=== PATIENT | female | born 1990 | race Asian ===

== ENCOUNTER 2016-12-03 23:13 | Observation (INO) | payer BC ==
--- NOTE | 2016-12-03 23:58 | ERPHSYRPT ---
- History of Present Illness Time Seen by Provider: 12/03/16 23:17 Historian: patient Exam Limitations: no limitations Physician History: patient presents with constipation; no bm for two days; blood on toilet paper only; no hx of hemrrhoids; some abd cramping; some nausea; vomited once last pm ; voiding ok; denies ; no fefver; no travel; no prior hx Timing/Duration: today (worse), yesterday (onnset), day(s) (2 constipated), gradual onset, worse Activities at Onset: none Quality: cramping Abdominal Pain Onset Location: generalized abdomen Pain Radiation: no radiation Severity of Pain-Max: moderate Severity of Pain-Current: moderate Modifying Factors: Improves With: defecating Associated Symptoms: diarrhea (watery stool today), nausea, vomiting (x1 last pm ) Previous symptoms: no prior history Allergies/Adverse Reactions: No Known Drug Allergies Allergy (Unverified 12/04/16 00:32) Home Medications: Topiramate [Topiramate ER] 1 tab BID 12/04/16 [History] Venlafaxine HCl [Effexor] 225 mg PO 12/04/16 [History] - Review of Systems Constitutional: No Symptoms Eyes: No Symptoms Ears, Nose, & Throat: No Symptoms Respiratory: No Cough, No Dyspnea, No Wheezing Cardiac: No Chest Pain, No Palpitations, No Syncope Abdominal/Gastrointestinal: Abdominal Pain (crampy), Nausea, Vomiting (x1 last pm), Diarrhea (x 1 today watery stool), Constipation (x 2 days), No Hematemesis , No Hematochezia, No Melena Genitourinary Symptoms: No Symptoms Musculoskeletal: No Symptoms Skin: No Symptoms Neurological: No Symptoms Psychological: Depression, No Suicidal Ideations, No Homicidal Ideations Endocrine: No Symptoms Hematologic/Lymphatic: No Symptoms Immunological/Allergic: No Symptoms - Past Medical History Pertinent Past Medical History: Yes Neurological History: Migraines Psycho-Social History: Depression - Past Surgical History Past Surgical History: No - Social History Smoking Status: Never smoker Exposure to second hand smoke: No Alcohol Use: None Drug Use: none Patient Lives Alone: No Significant Family History: no pertinent family hx - Female History Hx Now: No (on BC) - Nursing Vital Signs Nursing Vital Signs: Initial Vital Signs Temperature 97.8 F 12/03/16 23:14 Pulse Rate 116 H 12/03/16 23:14 Respiratory Rate 20 12/03/16 23:14 Blood Pressure 122/88 12/03/16 23:14 O2 Sat by Pulse Oximetry 95 12/03/16 23:14 Pain Scale Pain Intensity 7 - Physical Exam General Appearance: moderate distress, alert, anxiety, obese (morbid) Eye Exam: PERRL/EOMI, eyes nml inspection, No photophobia Ears, Nose, Throat Exam: normal ENT inspection, TMs normal, pharynx normal, moist mucous membranes Neck Exam: normal inspection, non-tender, supple, full range of motion, No meningismus, No JVD Respiratory Exam: normal breath sounds, lungs clear, airway intact, No chest tenderness, No respiratory distress, No rhonchi, No wheezing Cardiovascular Exam: regular rate/rhythm, normal heart sounds, normal peripheral pulses, tachycardia (116), capillary refill <2 sec, No murmur Gastrointestinal/Abdomen Exam: soft, tenderness (mild diffuse), No normal bowel sounds (slightly hyperactive), No guarding, No rebound, No organomegaly Pelvic Exam: deferred Rectal Exam: normal exam, normal rectal tone, blood (small amount bloody mucous) , No hemorrhoids, No black stool Back Exam: normal inspection, normal range of motion, No CVA tenderness, No vertebral tenderness, No rash Extremity Exam: normal inspection, normal range of motion, No clifton's sign, No pedal edema Neurologic Exam: alert, oriented x 3, cooperative, k 12 principal II-XII nml as tested, normal mood/affect, nml cerebellar function, nml station & gait Skin Exam: normal color, warm, dry, No rash, No petechiae - Course Nursing assessment & vital signs reviewed: Yes - CT Exams Abdomen/Pelvis CT Interpretation: Tele-radiologist Report, appendicitis Ordered Tests: Active Orders 24 hr Category Date Time Status Bedrest ROUTINE Activity 12/04/16 02:03 Active Admission/Status Order ROUTINE Care 12/04/16 01:58 Active Call Admit Doctor for Orders ON ADMISSION Care 12/04/16 02:01 Active Code Status Order ROUTINE Care 12/04/16 01:58 Active IV Care Q6H Care 12/04/16 01:58 Active IV Insertion STAT Care 12/04/16 00:04 Active NPO (ED) STAT Care 12/04/16 00:04 Active Re-Check Vital Signs STAT Care 12/04/16 00:04 Active Ander Leos, Apply ROUTINE Care 12/04/16 01:58 Active Weight,Daily 0600 Care 12/04/16 01:58 Active Consult Surgery ROUTINE Cons 12/04/16 01:58 Active NPO Diet 12/04/16 02:01 Active ABDOMEN AND PELVIS W CONTRAST [CT] Stat Exams 12/04/16 00:09 Taken AMYLASE Stat Lab 12/04/16 00:20 Completed CBC W DIFF Stat Lab 12/04/16 00:20 Completed CMP Stat Lab 12/04/16 00:20 Completed HCG QUALITATIVE,SERUM Stat Lab 12/04/16 00:20 Completed LIPASE Stat Lab 12/04/16 00:20 Completed Lactic Acid Stat Lab 12/04/16 01:40 Completed Manual Differential NC Stat Lab 12/04/16 00:20 Completed Occult Blood,Stool Other Stat Lab 12/04/16 00:26 Ordered UA W/ MICROSCOPIC Stat Lab 12/04/16 01:15 Completed Transfer Order Routine Transfer 12/04/16 Ordered Medication Summary Generic Name Dose Route Start Last Admin Trade Name Freq PRN Reason Stop Dose Admin Hydromorphone HCl 1 mg 12/04/16 01:58 Dilaudid 2 Mg Injection IV 12/09/16 01:57 Q4H PRN PRN PAIN Sodium Chloride 1,000 mls @ 100 mls/hr 12/04/16 00:15 12/04/16 00:37 Sodium Chloride 0.9% 1000 Ml IV 01/03/17 00:14 100 mls/hr .Q10H DEV Administration Cefazolin Sodium/Dextrose 1 gm in 50 mls @ 100 mls/hr 12/04/16 06:00 Kefzol 1 Gm/50 Ml Premix IV 01/03/17 05:59 Q8HT DEV Ondansetron HCl 4 mg 12/04/16 01:58 Zofran 4 Mg/2 Ml Vial IV 01/03/17 01:57 Q6H PRN PRN NAUSEA/VOMITING Discontinued Medications Generic Name Dose Route Start Last Admin Trade Name Freq PRN Reason Stop Dose Admin Hydromorphone HCl 2 mg 12/04/16 00:52 12/04/16 00:56 Hydromorphone 1 Mg/Ml Ampule IV 12/04/16 00:53 2 mg STAT ONE Administration Hydromorphone HCl Confirm 12/04/16 00:55 Hydromorphone 1 Mg/Ml Ampule Administered 12/04/16 00:56 Dose 2 mg .ROUTE .STK-MED ONE Promethazine HCl 12.5 mg 12/04/16 00:04 12/04/16 00:37 Phenergan 25 Mg Inj IV 12/04/16 00:05 12.5 mg STAT ONE Administration Promethazine HCl Confirm 12/04/16 00:28 Phenergan 25 Mg Inj Administered 12/04/16 00:29 Dose 25 mg .ROUTE .STK-MED ONE Lab/Rad Data: Laboratory Result Diagrams 12/04/16 00:20 12/04/16 00:20 Laboratory Results 12/04/16 12/04/16 12/04/16 Range/Units 01:40 01:15 00:20 WBC (4.0-10.5) K/mm3 RBC (4.1-5.4) M/mm3 Hgb (12.0-16.0) gm/dl Hct (35-47) % MCV (78-100) fl MCH (26-32) pg MCHC (32-36) g/dl RDW (11.5-14.0) % Plt Count (150-450) K/mm3 MPV (6-9.5) fl Sodium (136-145) mEq/L Potassium (3.5-5.1) mEq/L Chloride (98-107) mEq/L Carbon Dioxide (21-32) mEq/L Anion Gap (5-15) MEQ/L BUN (9-20) mg/dL Creatinine (0.55-1.30) mg/dl Estimated GFR ML/MIN Glucose (70-110) MG/DL Lactic Acid 1.1 (0.4-2.0) Calcium (8.5-10.1) mg/dL Total Bilirubin (0.2-1.0) mg/dL AST (15-37) U/L ALT (12-78) U/L Alkaline Phosphatase (46-116) U/L Serum Total Protein (6.4-8.2) gm/dL Albumin (3.4-5.0) g/dL Amylase (25-115) U/L Lipase (73-393) U/L Serum , Qual NEGATIVE (Negative) Ur Collection Type CATH Urine Color YELLOW (YELLOW) Urine Appearance CLEAR (CLEAR) Urine pH 5.0 (5-6) Ur Specific [place] 1.015 (1.005-1.025) Urine Protein 100 (Negative) Urine Ketones MODERATE (NEGATIVE) Urine Blood 50 (0-5) Gerson/ul Urine Nitrite NEGATIVE (NEGATIVE) Urine Bilirubin NEGATIVE (NEGATIVE) Urine Urobilinogen 1 (0-1) mg/dL Ur Leukocyte Esterase NEGATIVE (NEGATIVE) Urine Microscopic RBC 0-2 (0-2) /HPF Ur Epithelial Cells FEW (FEW) /HPF Urine Bacteria RARE (NEGATIVE) /HPF Urine Mucus SLIGHT (NEGATIVE) /HPF Urine Glucose NEGATIVE (NEGATIVE) mg/dL Specimen Received 12/04/16:0115 12/04/16 12/04/16 Range/Units 00:20 00:20 WBC 30.5 H* (4.0-10.5) K/mm3 RBC 4.80 (4.1-5.4) M/mm3 Hgb 15.7 (12.0-16.0) gm/dl Hct 45.2 (35-47) % MCV 94.2 (78-100) fl MCH 32.7 H (26-32) pg MCHC 34.7 (32-36) g/dl RDW 12.6 (11.5-14.0) % Plt Count 325 (150-450) K/mm3 MPV 10.9 H (6-9.5) fl Sodium 142 (136-145) mEq/L Potassium 3.2 L (3.5-5.1) mEq/L Chloride 105 (98-107) mEq/L Carbon Dioxide 17.3 L (21-32) mEq/L Anion Gap 22.6 H (5-15) MEQ/L BUN 7 L (9-20) mg/dL Creatinine 0.93 (0.55-1.30) mg/dl Estimated GFR > 60 ML/MIN Glucose 187 H (70-110) MG/DL Lactic Acid (0.4-2.0) Calcium 9.2 (8.5-10.1) mg/dL Total Bilirubin 0.90 (0.2-1.0) mg/dL AST 8 L (15-37) U/L ALT 13 (12-78) U/L Alkaline Phosphatase 96 (46-116) U/L Serum Total Protein 8.3 H (6.4-8.2) gm/dL Albumin 4.0 (3.4-5.0) g/dL Amylase 26 (25-115) U/L Lipase 72 L (73-393) U/L Serum , Qual (Negative) Ur Collection Type Urine Color (YELLOW) Urine Appearance (CLEAR) Urine pH (5-6) Ur Specific [place] (1.005-1.025) Urine Protein (Negative) Urine Ketones (NEGATIVE) Urine Blood (0-5) Gerson/ul Urine Nitrite (NEGATIVE) Urine Bilirubin (NEGATIVE) Urine Urobilinogen (0-1) mg/dL Ur Leukocyte Esterase (NEGATIVE) Urine Microscopic RBC (0-2) /HPF Ur Epithelial Cells (FEW) /HPF Urine Bacteria (NEGATIVE) /HPF Urine Mucus (NEGATIVE) /HPF Urine Glucose (NEGATIVE) mg/dL Specimen Received reviewed - Progress Progress: improved (after pain meds), re-examined (after meds and labs) Progress Note: 12/04/16 00:08 will give IV fluids and meds; get xr and recheck 12/04/16 00:50 recheck and family at bedside; N&V better but no relief of pain; significantly elevated WBC 30.5; preg neg; xr notified; will check urine and lactate and medicate for pain 12/04/16 01:11 medicated and sent to CT; BS up 187; renal function ok; K+ low at 3.2; dinora and lip wnl or low; liver labs ok or low; anion gap hi at 22.6; will recheck after cT and monitor 12/04/16 01:38 pain improved from 1010 to 7/[address]; results pending; VS improved too. Patient has a history of significantly elevated WBC in the 20 -30 range; ua and lactate pending; family at bedside 12/04/16 01:54CT shows acute appendicitis. Patient and family notified and Dr Constantino consulted and will admit and a surgical consult will be obtained. 12/04/16 01:57 lactate 1.1; Dr Paez paged for surgical consult for acute appendicitis 12/04/16 02:05 room requested for admission; orders written; 12/04/16 02:15 Dr Alexey Paez consulted and will consult for surgical intervention; will give ATBS and pain meds Discussed with DrVinicius: En (consulted and will see for surgery), Vira ( consulted and will admit and get a surgical consult) Will see patient in: hospital (observation) Counseled pt/family regarding: lab results, diagnosis, need for follow-up, rad results - Departure Time of Disposition: 01:55 Departure Disposition: Observation Clinical Impression: Acute generalized abdominal pain, Acute appendicitis Condition: Serious Critical Care Time: No Referrals: DEJAN BUSTILLO [Primary Care Provider] - EASTON CONSTANTINO [ACTIVE STAFF] - ISIS PAEZ [ACTIVE STAFF] -
[2016-12-04] MEDS ORDERED: Phenergan 25 MG INJ IV ONE (00:04)
[2016-12-04] MEDS ORDERED: Sodium Chloride 0.9% 1000 ML 1,000 ML IV SCH (00:15)
[2016-12-04] MEDS ORDERED: Phenergan 25 MG INJ ONE (00:28)
[2016-12-04] MEDS ORDERED: Sodium Chloride 0.9% 1000 ML 1,000 ML ONE (00:29)
[2016-12-04 00:35] LABS: Mean Cell Volume 94.2 fl (78-100); Mean Corpuscular Hemoglobin 32.7 pg (26-32); Mean Platelet Volume 10.9 fl (6-9.5); Platelet Count 325 K/mm3 (150-450); Red Cell Distribution Width 12.6 % (11.5-14.0)
[2016-12-04 00:38] LABS: White Blood Count 30.5 K/mm3 (4.0-10.5)
[2016-12-04 00:52] LABS: ALKALINE PHOSPHATASE 96 U/L (46-116); ANION GAP 22.6 MEQ/L (5-15); BLOOD UREA NITROGEN 7 mg/dL (9-20); CHLORIDE 105 mEq/L (98-107); Carbon Dioxide 17.3 mEq/L (21-32); Glucose 187 MG/DL (70-110); LIPASE 72 U/L (73-393); Potassium 3.2 mEq/L (3.5-5.1); SGOT/AST 8 U/L (15-37); SGPT/ALT 13 U/L (12-78); SODIUM 142 mEq/L (136-145); Total Protein 8.3 gm/dL (6.4-8.2)
[2016-12-04] MEDS ORDERED: Hydromorphone 1 mg/ml Ampule IV ONE (00:52)
[2016-12-04] MEDS ORDERED: Hydromorphone 1 mg/ml Ampule ONE (00:55)
[2016-12-04 01:27] LABS: Collection Type CATH
[2016-12-04 01:29] LABS: Bilirubin NEGATIVE (NEGATIVE); Blood 50 Ery/ul (0-5); COMPLETE URINE MICROSCOPIC? YES; Glucose NEGATIVE (NEGATIVE); Leukocyte Esterase NEGATIVE (NEGATIVE)
[2016-12-04 01:41] LABS: Bacteria RARE /HPF (NEGATIVE); Epithelial Cells FEW /HPF (FEW); Mucus SLIGHT /HPF (NEGATIVE)
[2016-12-04 01:42] LABS: ADD URINE CULTURE? NO (NO)
[2016-12-04] MEDS ORDERED: Zofran 4 MG/2 ML VIAL IV PRN (01:58)
[2016-12-04] MEDS ORDERED: KEFZOL 1 GM/50 ML PREMIX** 1 GM/50 ML IVPB IV ONE (02:41)
[2016-12-04] MEDS: KEFZOL 1 GM/50 ML PREMIX** 1 GM/50 ML IVPB IV SCH ×2 (02:41→07:25)
[2016-12-04 03:28] LABS: ATYPICAL LYMPHS 3 %; BAND 1 % (0.0-2.0); Platelet Estimate NORMAL (NORMAL); Total Cells Counted 100
[2016-12-04] MEDS: DILAUDID 2 MG INJECTION IV PRN ×2 (05:17→09:22)
--- NOTE | 2016-12-04 08:07 | XRAY ---
Indication: Abdominal pain and elevated WBC. Constipation. Multiple contiguous axial images obtained through the abdomen and pelvis using 80 cc Isovue 370 contrast only. Comparison: None Lung bases essentially clear. Heart is not enlarged. Noncontrasted stomach and bowel loops appear nonobstructed. Appendix is prominent up to 12 mm favoring appendicitis. Adjacent ileal bowel loops are mildly fluid distended with minimal wall thickening/enhancement either reactive versus enteritis. No free fluid/air. Remaining liver, pancreas, spleen, adrenal glands, kidneys, ureters, bladder, uterus, and aorta appear unremarkable. Osseous structures intact. Impression: 1. CT findings favoring acute appendicitis. No perforation or abscess. 2. Mild fluid distended ileal bowel loops with wall thickening/enhancement either reactive to appendicitis versus enteritis. Comment: Preliminary interpretation was made by [facility]. No discrepancy. CTDI 23.68
[2016-12-04] MEDS ORDERED: Lactated Ringers 1,000 ML IV SCH (10:00)
[2016-12-04] MEDS ORDERED: MEFOXIN 2 GM PREMIX** 2 GM/50 ML ML IV SCH (10:00)
[2016-12-04] MEDS ORDERED: Cyclobenzaprine 10 MG PO PRN (10:19)
[2016-12-04] MEDS ORDERED: Lactated Ringers 1,000 ML IV ONE ×2 (10:26→12:32)
[2016-12-04] MEDS ORDERED: Sensorcaine 0.25% 10 ML ONE (10:26)
[2016-12-04] MEDS ORDERED: DILAUDID 2 MG INJECTION ONE (11:58)
[2016-12-04] MEDS ORDERED: SUBLIMAZE 100 MCG/2 ML ONE (11:59)
[2016-12-04] MEDS ORDERED: BRIDION 200MG/2ML IV ONE (12:29)
[2016-12-04] MEDS ORDERED: Zofran 4 MG/2 ML VIAL IV ONE (12:29)
[2016-12-04] MEDS ORDERED: Versed 2 MG/2 ML Injection IV ONE (12:29)
[2016-12-04] MEDS ORDERED: Quelicin Fliptop 200 MG/10 ML IV ONE (12:29)
[2016-12-04] MEDS ORDERED: Zemuron 100 MG/10 ML IV ONE (12:29)
[2016-12-04] MEDS ORDERED: SUBLIMAZE 250 MCG/5 ML IV ONE (12:29)
[2016-12-04] MEDS ORDERED: DIPRIVAN 200 MG/20 ML IV ONE (12:29)
[2016-12-04] MEDS ORDERED: Zofran 4 MG/2 ML VIAL IVIM PRN (13:13)
[2016-12-04] MEDS ORDERED: TYLENOL 325 MG PO PRN (13:15)
[2016-12-04] MEDS ORDERED: FEVERALL 650 MG RC PRN (13:16)
[2016-12-04] MEDS: D5W/0.45NS W/ 20mEq KCl 1000 ML 1,000 ML IV SCH (13:34)
[2016-12-04] MEDS: MORPHINE SULFATE 2 MG INJ IV PRN (13:34)
[2016-12-04] MEDS: Topamax 100 MG PO SCH ×2 (13:34→21:46)
[2016-12-04 14:50] LABS: Bilirubin NEGATIVE (NEGATIVE); Blood SMALL Ery/ul (0-5); COMPLETE URINE MICROSCOPIC? YES; Collection Type CATH; Glucose NEGATIVE (NEGATIVE); Leukocyte Esterase TRACE (NEGATIVE)
[2016-12-04 14:51] LABS: Bacteria FEW /HPF (NEGATIVE); Epithelial Cells MODERATE /HPF (FEW); Mucus MANY /HPF (NEGATIVE)
--- NOTE | 2016-12-04 15:21 | PCM.HP ---
History of Present Illness - Chief Complaint Chief Complaint: appy History of Present Illness: is a 26 year old female pt of Dr. Murray who c/o 2 d of abdominal pain, was admitted through the ER and found to have appendicitis. Currently she is immediately s/p appendectomy by Dr. Evan Paez. She was having pain from epigstrum to pelvis and extending into her rectum, 10/ 10. She started having rectal bleeding with bowel movements so went to the ER. Her WBC count was 30,000. She did have some fever and vomiting. Currently having some 9/10 postoperative pain. - Review of Systems Constitutional: Other (wieght gain 10 lb recently) Cardiac: Chest Pain (chronic since high school) Abdominal/Gastrointestinal: Abdominal Pain, Nausea, Vomiting, Hematochezia Genitourinary Symptoms: Urinary Retention (mild x 2d) Musculoskeletal: Other (cramp in legs) Neurological: Dizziness, Headache (migraines since childhood; last yesterday), Other (c/o "fainting" spells but denies LOC; present since childhood) Psychological: Anxiety, Depression, Other (history suicidal ideation/attempt, last 4 mo ago, none currently), No Suicidal Ideations Medications & Allergies Home Medications: Home Medication List Cyclobenzaprine HCl 10 mg [Cyclobenzaprine 10 MG] 5 mg PO DAILY PRN [History Confirmed 12/04/16] Medroxyprogesterone Acet [Depo-Provera] 150 mg IJ UD 12/04/16 [History Confirmed 12/04/16] Topiramate [Topiramate ER] 1 tab BID 12/04/16 [History Confirmed 12/04/16] Venlafaxine HCl [Effexor] 225 mg PO DAILY 12/04/16 [History Confirmed 12/04/16] Allergies/Adverse Reactions: Allergies Allergy/AdvReac Type Severity Reaction Status Date / Time No Known Drug Allergies Allergy Unverified 12/04/16 00:32 - Past Medical History Past Medical History: Yes Neurological History: Migraines ENT History: No Pertinent History Cardiac History: Arrhythmia Respiratory History: No Pertinent History Endocrine Medical History: No Pertinent History Musculoskelatal History: No Pertinent History GI Medical History: No Pertinent History History: No Pertinent History Pyscho-Social History: Depression Reproductive Disorders: No Pertinent History Comment: diagnoesed last february with borderline personality disorder - Female History Are you now?: No (says no on injectable BC) - Past Surgical History Past Surgical History: No - Social History Smoking Status: Never smoker Exposure to second hand smoke: Yes Alcohol: None Drug Use: none Significant Family History: no pertinent family hx - Physical Exam Vital Signs: Vital Signs - 24 hr Temp Pulse Resp BP Pulse Ox 12/04/16 14:09 97.9 F 115 H 20 110/65 97 12/04/16 13:29 97.6 F 122 H 22 126/71 96 12/04/16 13:16 96 12/04/16 13:03 98 F 120 H 20 130/77 95 12/04/16 12:47 98.1 F 121 H 20 121/60 97 12/04/16 12:00 20 12/04/16 07:38 20 12/04/16 07:34 98.4 F 123 H 20 111/55 93 L 12/04/16 07:19 98 F 128 H 20 123/67 97 12/04/16 02:58 98.3 F 123 H 16 124/73 96 12/04/16 01:35 99.6 F 122 H 16 122/76 99 12/04/16 01:05 94 H 18 133/68 98 12/03/16 23:14 97.8 F 116 H 20 122/88 95 General Appearance: no apparent distress, obese Neurologic Exam: alert, oriented x 3, cooperative Eye Exam: eyes nml inspection Neck Exam: normal inspection, non-tender, supple, No lymphadenopathy Respiratory Exam: normal breath sounds, lungs clear, No crackles/rales, No rhonchi, No wheezing Cardiovascular Exam: regular rate/rhythm, normal heart sounds, No murmur Gastrointestinal/Abdomen Exam: soft, normal bowel sounds, tenderness (throughout ), other (surgical wounds covered with bandages - c/d/i) Extremity Exam: normal inspection Skin Exam: normal color, warm, dry Results - Labs Lab/Micro Results: Lab Results-Last 24 Hours 12/04/16 Range/Units 10:50 Ur Collection Type CATH Urine Color DARK YELLOW (YELLOW) Urine Appearance CLEAR (CLEAR) Urine pH 5.0 (5-6) Ur Specific [place] 1.015 (1.005-1.025) Urine Protein TRACE (Negative) Urine Ketones NEGATIVE (NEGATIVE) Urine Blood SMALL (0-5) Gerson/ul Urine Nitrite NEGATIVE (NEGATIVE) Urine Bilirubin NEGATIVE (NEGATIVE) Urine Urobilinogen NORMAL (0-1) mg/dL Ur Leukocyte Esterase TRACE (NEGATIVE) Urine Microscopic RBC 2-5 (0-2) /HPF Urine Microscopic WBC 2-5 (0-5) /HPF Ur Epithelial Cells MODERATE (FEW) /HPF Urine Bacteria FEW (NEGATIVE) /HPF Urine Mucus MANY (NEGATIVE) /HPF Urine Glucose NEGATIVE (NEGATIVE) mg/dL Specimen Received 12/04/16 11:10 - Other Procedures and Tests Respiratory Therapy 12/04/16 12:54 Incentive Spirometry Assessmen UD Assessment/Plan (1) S/P appendectomy Current Visit: Yes Status: Acute Assessment & Plan: Today by Dr. Paez, thank you. He advised pt to stay overnight on IV antibiotics. Code(s): Z90.49 - ACQUIRED ABSENCE OF OTHER SPECIFIED PARTS OF DIGESTIVE TRACT (2) Leukocytosis Current Visit: Yes Status: Acute Assessment & Plan: On cefoxetin 1g IV q8h. Recheck in a.m. Code(s): D72.829 - ELEVATED WHITE BLOOD CELL COUNT, UNSPECIFIED
[2016-12-04] MEDS: MORPHINE SULFATE 4 MG INJ IV PRN ×2 (16:24→21:46)
[2016-12-04] MEDS: MEFOXIN 1 Gm/ D5W 50 Ml** 1 G/50 ML ML IV SCH (17:53)
[2016-12-04] MEDS: NORCO 5/325 MG PO PRN (17:57)
[2016-12-04] MEDS ORDERED: TOPIRAMATE PO SCH (22:00)
[2016-12-05] MEDS: MEFOXIN 1 Gm/ D5W 50 Ml** 1 G/50 ML ML IV SCH ×3 (02:16→18:18)
[2016-12-05] MEDS: MORPHINE SULFATE 4 MG INJ IV PRN (04:31)
[2016-12-05 05:54] LABS: Mean Corpuscular Hemoglobin 32.9 pg (26-32); Mean Platelet Volume 11.2 fl (6-9.5); Platelet Count 252 K/mm3 (150-450); Red Blood Count 3.95 M/mm3 (4.1-5.4); Red Cell Distribution Width 12.6 % (11.5-14.0)
[2016-12-05 06:01] LABS: White Blood Count 25.1 K/mm3 (4.0-10.5)
[2016-12-05] MEDS: MORPHINE SULFATE 2 MG INJ IV PRN ×3 (09:19→21:44)
[2016-12-05] MEDS: Topamax 100 MG PO SCH ×2 (09:20→21:39)
[2016-12-05] MEDS: Effexor XR 75 MG PO SCH (09:20)
[2016-12-05] MEDS: ENOXAPARIN SODIUM SQ SCH (09:20)
[2016-12-05] MEDS ORDERED: VENLAFAXINE HCL 225 MG PO SCH (10:00)
[2016-12-05] MEDS: NORCO 5/325 MG PO PRN ×2 (12:17→18:28)
--- NOTE | 2016-12-05 13:02 | PCM.NOTE ---
Date and Time: 12/05/16 1257 Subjective Assessment: She is still c/o some abdominal pain. Has been tolerating po well. - Review of Systems Constitutional: No Fever Abdominal/Gastrointestinal: Abdominal Pain Objective Exam General Appearance: no apparent distress, obese Neurologic Exam: alert, oriented x 3, cooperative Skin Exam: normal color, warm, dry Respiratory Exam: normal breath sounds, No crackles/rales, No rhonchi, No wheezing Cardiovascular Exam: regular rate/rhythm, normal heart sounds, No murmur Gastrointestinal/Abdomen Exam: soft, normal bowel sounds, tenderness (in RUQ and RLQ), No guarding, No rebound Extremity Exam: No pedal edema, No swelling Back Exam: normal inspection OBJECTIVE DATA Vital Signs: Vital Signs - 24 hr Temp Pulse Resp BP Pulse Ox 12/05/16 12:27 98 F 78 20 128/66 98 12/05/16 12:00 20 12/05/16 08:00 20 12/05/16 07:02 98 F 70 20 101/58 98 12/05/16 04:00 98.3 F 106 H 17 114/62 95 12/05/16 00:00 16 12/04/16 23:34 98.2 F 93 H 16 109/67 96 12/04/16 20:14 104 H 20 97 12/04/16 20:00 98.5 F 109 H 20 112/75 97 12/04/16 16:20 97.8 F 106 H 20 125/61 95 12/04/16 16:00 20 12/04/16 14:09 97.9 F 115 H 20 110/65 97 12/04/16 13:29 97.6 F 122 H 22 126/71 96 12/04/16 13:16 96 12/04/16 13:03 98 F 120 H 20 130/77 95 Pain Assessment - Last Documented Pain Intensity 9 Pain Scale Used 0-10 Pain Scale Intake and Output: Intake & Output 12/03/16 12/04/16 12/05/16 12/06/16 11:59 11:59 11:59 11:59 Intake Total 149 2659 Output Total 3000 Balance 149 -341 Weight 126.099 kg 126.961 kg Lab Results: Lab Results-Last 24 Hours 12/04/16 12/05/16 Range/Units 10:50 05:20 WBC 25.1 H* (4.0-10.5) K/mm3 Corrected WBC (auto) [employer] RBC 3.95 L (4.1-5.4) M/mm3 Hgb 13.0 (12.0-16.0) gm/dl Hct 38.3 (35-47) % MCV 97.0 (78-100) fl MCH 32.9 H (26-32) pg MCHC 33.9 (32-36) g/dl RDW 12.6 (11.5-14.0) % Plt Count 252 (150-450) K/mm3 MPV 11.2 H (6-9.5) fl Ur Collection Type CATH Urine Color DARK YELLOW (YELLOW) Urine Appearance CLEAR (CLEAR) Urine pH 5.0 (5-6) Ur Specific [place] 1.015 (1.005-1.025) Urine Protein TRACE (Negative) Urine Ketones NEGATIVE (NEGATIVE) Urine Blood SMALL (0-5) Gerson/ul Urine Nitrite NEGATIVE (NEGATIVE) Urine Bilirubin NEGATIVE (NEGATIVE) Urine Urobilinogen NORMAL (0-1) mg/dL Ur Leukocyte Esterase TRACE (NEGATIVE) Urine Microscopic RBC 2-5 (0-2) /HPF Urine Microscopic WBC 2-5 (0-5) /HPF Ur Epithelial Cells MODERATE (FEW) /HPF Urine Bacteria FEW (NEGATIVE) /HPF Urine Mucus MANY (NEGATIVE) /HPF Urine Glucose NEGATIVE (NEGATIVE) mg/dL Slides for Path Review YES Specimen Received 12/04/16 11:10 Multi-Disciplinary Progress Notes: Multi-Disciplinary Progress Notes 12/05/16 06:32 Respiratory Note by Zeke Grimes COMPLETED ORDER FOR IS. AFTER INSTRUCTION AND A COUPLE OF FOLLOW UPS PT WAS DOING EXCELLENT W/ IS AND WE MADE HER SELF DIRECTED CARE. Initialized on 12/05/16 06:32 - END OF NOTE Assessment/Plan (1) S/P appendectomy Current Visit: Yes Status: Acute Assessment & Plan: POD #1, doing well aside from the leukocytosis. Should be up and out of bed more today. Code(s): Z90.49 - ACQUIRED ABSENCE OF OTHER SPECIFIED PARTS OF DIGESTIVE TRACT (2) Leukocytosis Current Visit: Yes Status: Acute Assessment & Plan: Elevated WBC, 25,100 down from 30,000 at admission. I would like for her to stay another day on the IV antibiotics. Recheck in the morning. She thinks she has some chronic leukocytosis but it sounds like her usual number is no higher than 14,000 (I cannot see any previous CBC in our EMR, however there is a peripheral smear from June 2016, mild leukocytosis with eosinophilia). Code(s): D72.829 - ELEVATED WHITE BLOOD CELL COUNT, UNSPECIFIED
[2016-12-06] MEDS: D5W/0.45NS W/ 20mEq KCl 1000 ML 1,000 ML IV SCH (01:05)
[2016-12-06] MEDS: NORCO 5/325 MG PO PRN ×2 (01:23→05:32)
[2016-12-06] MEDS: MEFOXIN 1 Gm/ D5W 50 Ml** 1 G/50 ML ML IV SCH ×2 (01:23→09:31)
[2016-12-06 06:01] LABS: Mean Cell Volume 97.4 fl (78-100); Mean Corpuscular Hemoglobin 32.6 pg (26-32); Mean Platelet Volume 11.5 fl (6-9.5); Platelet Count 259 K/mm3 (150-450); Red Blood Count 3.89 M/mm3 (4.1-5.4); Red Cell Distribution Width 12.2 % (11.5-14.0); White Blood Count 16.9 K/mm3 (4.0-10.5)
[2016-12-06 07:54] LABS: Eosinophil 2 % (0.00-3.0); Platelet Estimate NORMAL (NORMAL); Total Cells Counted 100; Toxic Granulation 1+
--- NOTE | 2016-12-06 09:13 | PCM.DS ---
Discharge Summary Date of Admission: 12/04/16 02:24 Admitting Physician: EASTON SHEIKH Consults: Consults on Case 12/04/16 01:58 Consult Surgery ROUTINE Primary Care Provider: DEJAN BUSTILLO Allergies Allergies No Known Drug Allergies Allergy (Unverified 12/04/16 00:32) Hospital Summary - Hospital Course Hospital Course: patient was admitted with acute appendicitis, had lap appy. had marked leukocytosis, improving with IV abx. she feels well, has been afebrile, ambulating and tolerating po with no problems. - Vitals & Intake/Output Vital Signs: Vital Signs Temperature 97.9 F 12/06/16 08:00 Pulse Rate 94 H 12/06/16 08:00 Respiratory Rate 22 12/06/16 08:00 Blood Pressure 111/67 12/06/16 08:00 O2 Sat by Pulse Oximetry 99 12/06/16 08:00 Intake & Output: Intake & Output 12/03/16 12/04/16 12/05/16 12/06/16 11:59 11:59 11:59 11:59 Intake Total 149 2659 1695 Output Total 3000 2800 Balance 149 -341 -1105 Weight 126.099 kg 126.961 kg - Lab Result Diagrams: 12/06/16 05:00 12/04/16 00:20 Lab Results-Last 24 Hrs: Lab Results-Last 24 Hours 12/06/16 Range/Units 05:00 WBC 16.9 H (4.0-10.5) K/mm3 RBC 3.89 L (4.1-5.4) M/mm3 Hgb 12.7 (12.0-16.0) gm/dl Hct 37.9 (35-47) % MCV 97.4 (78-100) fl MCH 32.6 H (26-32) pg MCHC 33.5 (32-36) g/dl RDW 12.2 (11.5-14.0) % Plt Count 259 (150-450) K/mm3 MPV 11.5 H (6-9.5) fl Segmented Neutrophils 73 H (36.0-66.0) % Lymphocytes (Manual) 18 L (24-44) % Monocytes (Manual) 7 (0.0-12.0) % Eosinophils (Manual) 2 (0.00-3.0) % Differential Comment NORMAL Toxic Granulation 1+ Platelet Estimate NORMAL (NORMAL) Micro Results-Entire Visit: Microbiology 12/04/16 10:50 Urine Culture - Final Catherized NO GROWTH 12/04/16 10:50 Gram Stain - Final Other - Not Known Wound Culture - Preliminary NO GROWTH TO DATE - Procedures and Test Procedures and Tests throughout Hospitalization: Therapy Orders & Screens 12/04/16 12:54 Incentive Spirometry Assessmen UD Comment: Diagnosis: appy Discharge Exam General Appearance: no apparent distress, alert Respiratory Exam: normal breath sounds, lungs clear, No respiratory distress Cardiovascular Exam: regular rate/rhythm, normal heart sounds Gastrointestinal/Abdomen Exam: soft, No tenderness, No mass Extremity Exam: normal inspection, normal range of motion Final Diagnosis/Problem List - Final Discharge Diagnosis/Problem (1) Acute appendicitis Current Visit: Yes Status: Acute (2) Leukocytosis Current Visit: Yes Status: Acute - Discharge Disposition: Home, Self-Care Condition: Good Prescriptions: No Action Venlafaxine HCl [Effexor] 225 mg PO DAILY Topiramate [Topiramate ER] 1 tab BID Cyclobenzaprine HCl 10 mg [Cyclobenzaprine 10 MG] 5 mg PO DAILY PRN PRN Reason: Muscle Spasms Medroxyprogesterone Acet [Depo-Provera] 150 mg IJ UD Follow up with: DEJAN BUSTILLO [Primary Care Provider] - ISIS ESPINAL [ACTIVE STAFF] - EASTON SHEIKH [ACTIVE STAFF] -
[2016-12-06] MEDS: ENOXAPARIN SODIUM SQ SCH (09:30)
[2016-12-06] MEDS: Effexor XR 75 MG PO SCH (09:30)
[2016-12-06] MEDS: Topamax 100 MG PO SCH (09:31)
[2016-12-06 12:08] VITALS: BP 96/64; PULSE 109; O2SAT 95
--- NOTE | 2016-12-07 07:37 | OP ---
SURGERY DATE/TIME: 12/04/2016 1045 PREOPERATIVE DIAGNOSIS: Acute appendicitis. POSTOPERATIVE DIAGNOSIS: Acute appendicitis with three focal perforations and abscess. PROCEDURE: Laparoscopic appendectomy and evacuation of abscess. SURGEON: Evan Paez M.D. ANESTHESIA: General. COMPLICATIONS: None. CONDITION: Stable. INDICATION: Above stated condition. DESCRIPTION OF PROCEDURE: The patient was taken to surgery. General anesthetic. Routine prep and drape. She is morbidly obese. Right upper quadrant puncture. Insufflating pressure 14. Two 5's and a 12. Good visualization. There was pus in the right gutter this was suction irrigated. Appendix 2.5 inches with the three microperforations. The mesoappendix taken down to the cecum and the base taken. The most proximal perforation was very close to the base of the cecum. The staple line was intact. Irrigation was totally clear. There was no specific place for a drain. Fascia closed with 0 Vicryl and skin closed with 4-0 Vicryl. Steri-Strips applied. Sterile dressing applied. The patient tolerated the procedure satisfactorily.
== END 2016-12-06 12:30 | disposition home or self-care (01) ==
LOC: ED 23:13 → MED SURG 12-04 02:24
PROVIDERS: ADMIT Family Medicine; ATTEND Family Medicine
PROC: 0DTJ4ZZ Resection of Appendix, Percutaneous Endoscopic Approach (ICD-10-PCS; principal; 2016-12-04)
DX: K35.3 Acute appendicitis with localized peritonitis (principal); Z90.49 Acquired absence of other specified parts of digestive tract; D72.829 Elevated white blood cell count, unspecified
CPT/HCPCS: 00840; 36000; 36415; 74177; 80053; 81000; 82150; 83605; 83690; 84703; 85025; 85027; 87070; 87086; 88304; 94760; 96360; 96361; 96374; 96375; 99140; 99285; G0378; J0330; J0690; J0694; J1170; J1650; J2250; J2270; J2405; J2550; J2704; J3010; A9270-GY